=== PATIENT | male | born 1945 | race American Indian/Alaskan Native ===

== ENCOUNTER 2019-01-11 09:36 | Outpatient (CLI) | payer OTHER ==
--- NOTE | 2019-01-11 15:20 | Ultrasound Report ---
DIGITAL DIAGNOSTIC MAMMOGRAM WITH CAD -- 01/11/2019 BILATERAL COMPLETE BREAST ULTRASOUND INDICATION: 73-year-old male with bilateral nipple inversion. TECHNIQUE: Digital bilateral mammographic imaging was performed. Complete ultrasound of all four (4) quadrants was performed. This examination was interpreted with the benefit of Computer-Aided Detecti on (CAD) analysis. COMPARISON: None. FINDINGS: Breast Density: The breasts are almost entirely fatty. MAMMOGRAPHIC FINDINGS: There is no evidence of dominant mass, suspicious calcifications or architectu ral distortion in either breast. Mild right retroareolar fibroglandular densities. ULTRASOUND FINDINGS: Complete sonographic evaluation of all 4 quadrants and retroareolar region was p erformed. No mass, cyst or shadowing of either breast. Mild right retroareolar fibroglandular struc tures. Ultrasound of the right axilla demonstrated a lymph node with abnormal morphology and no centr al fat. It measures 1.8 x 1.1 x 1.9 cm. IMPRESSION: 1. Mild right benign gynecomastia and negative left breast. 2. A suspicious 1.9 cm right axillary lymph node. Recommend ultrasound-guided needle core biopsy of t he lymph node. The patient was informed of the recommendation for biopsy at the time of the exam. Follow up recommendation: Biopsy BI-RADS Category 4: Suspicious for Malignancy. A "normal" or negative report should not discourage follow up or biopsy of a clinically significant f inding. A written summary of these findings will be mailed to the patient. The patient will be entered into a mammography reporting system which will generate a reminder letter for the patient's next appointmen t at the appropriate interval. According to the [employer], yearly mammograms are recommended starting at age 40 and continuing as long as a woman is in good health. BrearetroareolarMRI is recommended for women wi th an approximately 20-25% or greater lifetime risk of breast cancer, including women with a strong f amily history of breast or ovarian cancer and women who have been treated for Hodgkin's disease. Signer Name: Ethan Holbrook MD Signed: 01/11/2019 3:16 PM Workstation Name: [id number]
== END 2019-01-11 09:37 | disposition home or self-care (01) ==
LOC: MAMMO 09:36
PROVIDERS: ATTEND Internal Medicine Infectious Disease
DX: N62 Hypertrophy of breast (principal); N63.0 Unspecified lump in unspecified breast
CPT/HCPCS: 77066

== ENCOUNTER 2019-01-26 13:46 | Outpatient (CLI) | payer OTHER ==
--- NOTE | 2019-01-26 15:25 | Ultrasound Report ---
ULTRASOUND-GUIDED NEEDLE CORE BIOPSY LEFT AXILLARY LYMPH NODE WITH CLIP PLACEMENT CLINICAL: 73-year-old male with bilateral nipple inversion and left axillary lymph node enlargement. FINDINGS: The procedure was explained to the patient and informed consent was obtained. Ultrasound demonstrated the previously identified abnormal lymph node measuring 2.1 x 1.3 x 1.5 cm.. I marked the skin with a felt tip marker and a timeout was called. The skin was prepped with Chloro-P rep and anesthetized with 1% lidocaine. Needle core biopsy was performed through small dermatotomy using ultrasound guidance, 2% lidocaine wi th epinephrine for deep anesthesia and a 18-gauge Achieve biopsy device. 2 cores were obtained and pl aced in RPMI for flow cytometry and 2 cores were placed in formalin. A clip was deployed within the l ymph node. The patient tolerated the procedure well and there were no apparent complications. Hemostasis was ach ieved with minimal effort and a sterile dressing was applied. IMPRESSION: Uncomplicated ultrasound guided needle core biopsy with clip placement left axillary lymp h node. Signer Name: Ethan Holbrook MD Signed: 01/26/2019 3:21 PM Workstation Name: [id number]
== END 2019-01-26 13:47 | disposition home or self-care (01) ==
LOC: SPVWC 13:46
DX: R59.9 Enlarged lymph nodes, unspecified (principal); N63.0 Unspecified lump in unspecified breast; N64.59 Other signs and symptoms in breast
CPT/HCPCS: 38505; 76942; 88184; 88185; 88305